=== PATIENT | male | born 1965 | race Caucasian/White ===

== ENCOUNTER 2016-10-31 14:01 | Emergency (ER) | payer SELFPAY ==
[~2016-10-31] VITALS: Ht 170.2 cm; Wt 77.1 kg
[2016-10-31 14:05] VITALS: BP 188/105
[2016-10-31] MEDS ORDERED: LIDOCAINE 2% TOPICAL JELLY 5GM TUBE. TP ONE (14:30)
[2016-10-31] MEDS ORDERED: OXYMETAZOLINE 0.05% NASAL SPRAY 30ML BOTTLE. NS ONE (14:30)
[2016-10-31] MEDS ORDERED: HYDR25TA9 PO (14:47)
[2016-10-31] MEDS ORDERED: OXYM30SP67 NS (14:47)
--- NOTE | 2016-10-31 14:47 | PHYS DOC ---
Past Medical History Past Medical History: Hypertension Additional Past Medical Histor: Hepatitis C Past Surgical History: No Surgical History Alcohol Use: None Drug Use: None Adult General Chief Complaint Chief Complaint: NOSEBLEED HPI HPI 50-year-old male presenting to the emergency department today with a history of nosebleeds but not having a current nosebleed. He has a history of hypertension however because he does not have insurance has had a difficult time being treated. Currently he is asymptomatic. Onset 1 week Location nose Duration intermittent Alleviated with pressure. Review of Systems Review of Systems ROS negative for chest pain shortness of breath headache fevers chills nausea vomiting diarrhea constipation. All other review of systems is negative unless otherwise noted in history of present illness. Current Medications Current Medications Current Medications Medications (Trade) Dose Ordered Sig/Reji Start Time Stop Time Status Last Admin Dose Admin Lidocaine HCl (Xylocaine 2% Topical 5gm Tube) 1 thao 1X ONCE 10/31/16 14:30 10/31/16 14:31 DC Oxymetazoline HCl (Afrin) 2 spray 1X ONCE 10/31/16 14:30 10/31/16 14:31 DC Allergies Allergies Allergies Coded Allergies Type Severity Reaction Last Updated Verified No Known Drug Allergies 10/31/16 No Physical Exam Physical Exam Constitutional: Well developed, well nourished, no acute distress, non-toxic appearance. HENT: Normocephalic, atraumatic, bilateral external ears normal, oropharynx moist, no oral exudates, nose normal. No bleeding from the nose present. No blood in the spit. Eyes: PERRLA, EOMI, conjunctiva normal, no discharge. Neck: Normal range of motion, no tenderness, supple, no stridor. [] Cardiovascular:Heart rate regular rhythm, no murmur [] Lungs & Thorax: Bilateral breath sounds clear to auscultation [] Abdomen: Bowel sounds normal, soft, no tenderness, no masses, no pulsatile masses. Skin: Warm, dry, no erythema, no rash. [] Back: No tenderness, no CVA tenderness. [] Extremities: No tenderness, no cyanosis, no clubbing, ROM intact, no edema. [] Neurologic: Alert and oriented X 3, normal motor function, normal sensory function, no focal deficits noted. Psychologic: Affect normal, judgement normal, mood normal. [] Current Patient Data Vital Signs Vital Signs Date Time Temp Pulse Resp B/P Pulse Ox O2 Delivery O2 Flow Rate FiO2 10/31/16 14:55 77 18 166/101 98 10/31/16 14:05 98.3 Room Air 98.3 EKG EKG [] Radiology/Procedures Radiology/Procedures [] Course & Med Decision Making Course & Med Decision Making Pertinent Labs and Imaging studies reviewed. (See chart for details) [] 50-year-old male presenting the emergency department after having nosebleeds that resolved with pressure. Currently he was asymptomatic. Vital signs showed hypertension at approximately 180 systolic. No evidence of end organ dysfunction on examination. No bleeding of the nose with time. I recommended the patient treat his hypertension. I offered the patient hydrochlorothiazide in the interim to get him into clinic within the next 4-5 days. He was then subsequently discharged home for follow-up. Dragon Disclaimer Dragon Disclaimer This electronic medical record was generated, in whole or in part, using a voice recognition dictation system. Departure Departure Impression: Primary Impression: Nosebleed Additional Impression: Hypertension Disposition: HOME, SELF-CARE Condition: STABLE Referrals: MARK LOCKHART MD Patient Instructions: Hypertension, Nosebleed Additional Instructions: Thank you for allowing us to participate in your care today. Followup with your primary care physician in 3 days if your symptoms do not improve. If you do not have a primary care provider you can ask for a list of our primary care providers. Return to the emergency department you have any new or concerning findings. This should be evaluated by the primary care physician and any necessary consulting services for continued management within a few days after discharge. Return to emergency room if you have any new or concerning symptoms including but not limited to fever, chills, nausea, vomiting, intractable pain, any new rashes, chest pain, shortness of air, uncontrolled bleeding, difficulty breathing, and/or vision loss. Scripts Oxymetazoline Hcl 15 Ml Spray15 Ml NS PRN BID PRN PER PROTOCOL #1 BOTTLE Intranasal: Blow nose, and then instill 2-3 sprays into each nostril twice daily for =3 days if bleeding recurs. then hold pressure Prov:LORETO ANN MD 10/31/16 Hydrochlorothiazide (Hydrochlorothiazide Tablet )25 Mg Tablet1 Tab PO DAILY # 10 TAB Ref 0 Prov:LORETO ANN MD 10/31/16 Problem Qualifiers LROETO ANN MD Oct 31, 2016 14:47
== END 2016-10-31 14:55 | disposition home or self-care (01) ==
LOC: ER 14:01
DX: R04.0 Epistaxis (principal); I10 Essential (primary) hypertension; B19.20 Unspecified viral hepatitis C without hepatic coma
CPT/HCPCS: 99283